=== PATIENT | male | born 1995 | race Caucasian/White ===

== ENCOUNTER 2018-07-21 08:44 | Emergency (ER) | payer OTHER ==
--- NOTE | 2018-07-21 09:02 | EDPHY ---
H & P Stated Complaint: right buttock lac occurred at work 8am, bleeding controlled Time Seen by Provider: 07/21/18 08:48 HPI/ROS: Chief Complaint: Buttocks laceration HPI: 23-year-old male sustained a laceration on a sharp piece of sheet metal on his right buttocks. Patient states she was at work and coming down off a ladder when he brushed up against a control panel for a electric motor. A sharp edge from a sheet metal lacerated his right buttocks. This happened just prior to arrival. He is up-to-date in his tetanus. Denies any other injuries. Does not believe he was impaled by the object. ROS: 10 systems were reviewed and were negative except those elements noted in the HPI. PMH: Denies Social History: No smoking Family History: non-contributory Physical Exam: Gen: Awake, Alert, No Distress Right buttocks: Patient has a 3 cm oblique laceration this superior aspect of his right buttocks. It goes into the subcutaneous fat. No foreign bodies noted. No active bleeding. I am able to visualize the full depth of the laceration. No other injuries noted Ext: no edema, non-tender Skin: no rash Neuro: CN II-XII intact, Sensation grossly intact, Strength 5/5 in bilateral upper and lower extremities - Personal History Current Tetanus Diphtheria and Acellular Pertussis (TDAP): Yes Tetanus Vaccine Date: within 10 yrs - Medical/Surgical History Other PMH: kidney stones, hypoglycemia, - Social History Smoking Status: Never smoked Constitutional: Initial Vital Signs Temperature (C) 36.8 C 07/21/18 08:49 Heart Rate 89 07/21/18 08:49 Respiratory Rate 18 07/21/18 08:49 Blood Pressure 136/84 H 07/21/18 08:49 O2 Sat (%) 96 07/21/18 08:49 O2 Delivery Mode Room Air Allergies/Adverse Reactions: latex Allergy (Verified 07/21/18 08:48) Home Medications: Medication Instructions Recorded Theralith Xr Tablet 07/21/18 Medical Decision Making Procedures: Procedure: Laceration repair. Verbal consent was obtained from the patient. The 3 cm laceration on the right buttocks was anesthetized in the usual fashion. The wound was irrigated, draped and explored to its base with a gloved finger. There were no deep structures involved. No tendon injury was identified. The wound was repaired with a 4-0 Ethilon running suture. The wound repair was uncomplicated. The procedure was performed by myself. Departure - Departure Disposition: Home, Routine, Self-Care Clinical Impression: Laceration Condition: Good Instructions: Care For Your Stitches (ED), Laceration (ED) Additional Instructions: Sutures need to be removed in 10 days. You may return here to the emergency department and we will remove them for you or you can follow up with workman's Comp. Return to the emergency department sooner for increasing redness, discharge from the wound, increasing pain, or any other concerns. Referrals: Work Comp Referral [facility] [Outside] - As per Instructions Stand Alone Forms: Work Excuse
[2018-07-21 09:40] VITALS: BP 138/75
== END 2018-07-21 09:40 | disposition home or self-care (01) ==
LOC: CED 08:44
PROC: 0HQ8XZZ Repair Buttock Skin, External Approach (ICD-10-PCS; principal; 2018-07-21)
DX: S31.811A Laceration without foreign body of right buttock, initial encounter (principal); W26.8XXA Contact with other sharp object(s), not elsewhere classified, initial encounter; Y92.89 Other specified places as the place of occurrence of the external cause; Y93.89 Activity, other specified; Y99.0 Civilian activity done for income or pay